=== PATIENT | female | born 1965 | race Caucasian/White ===

== ENCOUNTER 2017-04-01 08:48 | Emergency (ER) | payer BC ==
[~2017-04-01] VITALS: Ht 180.3 cm; Wt 93.3 kg
[~2017-04-01 08:48] MED LIST: BENTYL20 MG PO; FLEXERIL10 MG PO; PRILOSEC20 MG PO
[2017-04-01 09:59] LABS: HEMATOCRIT 42.3 % (36.0-46.0); HEMOGLOBIN 14.9 G/DL (11.9-15.5); MCHC 35.2 G/DL (30.0-36.0); MCV 88.1 FL (83-99); PLATELET COUNT 254 K/uL (156-360); RBC DIS.WIDTH-CV 11.9 % (11.8-14.6); RBC DIS.WIDTH-SD 38.3 % (39-53); WHITE BLOOD COUNT 6.5 K/uL (4.1-10.2)
[2017-04-01 10:17] LABS: CHLORIDE 107 mEq/L (99-109); POTASSIUM 3.8 mEq/L (3.7-5.4); SODIUM 141 mEq/L (136-147)
[2017-04-01 10:18] LABS: GLUCOSE 97 mg/dL (70-99)
[2017-04-01 10:20] LABS: TROP-I INTERPRETATION NEGATIVE; TROPONIN-I < 0.01 ng/mL (0.0-0.30)
[2017-04-01 10:22] LABS: CREATININE 0.8 mg/dL (0.6-1.3); GFR ESTIMATE (CALCULATED) > 59 mL/min/
[2017-04-01 10:23] LABS: UREA NITROGEN (BUN) 9 mg/dL (9-23)
[2017-04-01 13:00] LABS: TROP-I INTERPRETATION NEGATIVE; TROPONIN-I < 0.01 ng/mL (0.0-0.30)
[2017-04-01 13:34] VITALS: BP 122/82
== END 2017-04-01 13:35 | disposition home or self-care (01) ==
LOC: EME 08:48
PROVIDERS: Nurse Practitioner Family
DX: R07.9 Chest pain, unspecified (principal); I49.3 Ventricular premature depolarization; Z82.49 Family history of ischemic heart disease and other diseases of the circulatory system; Z87.11 Personal history of peptic ulcer disease; Z88.1 Allergy status to other antibiotic agents
CPT/HCPCS: 71046; 80048; 84484; 85027; 93005; 99281; 99284

== ENCOUNTER 2017-08-11 09:50 | Emergency (ER) | payer BC ==
[~2017-08-11] VITALS: Ht 180.3 cm; Wt 93.8 kg
[2017-08-11 10:37] LABS: HEMATOCRIT 38.8 % (36.0-46.0); HEMOGLOBIN 13.9 G/DL (11.9-15.5); MCH 32.2 PG (29.0-34.0); MCHC 35.8 G/DL (30.0-36.0); MCV 89.8 FL (83-99); PLATELET COUNT 201 K/uL (156-360); RBC DIS.WIDTH-CV 12.1 % (11.8-14.6); RBC DIS.WIDTH-SD 39.7 % (39-53); RED BLOOD COUNT 4.32 M/uL (3.80-5.20); WHITE BLOOD COUNT 5.7 K/uL (4.1-10.2)
[2017-08-11 10:46] LABS: CHLORIDE 107 mEq/L (99-109); POTASSIUM 4.2 mEq/L (3.7-5.4); SODIUM 137 mEq/L (136-147)
[2017-08-11 10:48] LABS: GLUCOSE 103 mg/dL (70-99); TOTAL PROTEIN 6.6 g/dL (6.4-8.3)
[2017-08-11 10:50] LABS: TOTAL BILIRUBIN 0.7 mg/dL (0.0-1.0)
[2017-08-11 10:51] LABS: ALKALINE PHOSPHATASE 53 IU/L (3-129)
[2017-08-11 10:52] LABS: CREATININE 0.8 mg/dL (0.6-1.3); GFR ESTIMATE (CALCULATED) > 59 mL/min/
[2017-08-11 10:52] LABS: APPEARANCE CLEAR ((CLEAR)); BILIRUBIN NEGATIVE; BLOOD NEGATIVE; COLOR STRAW ((YELLOW)); GLUCOSE (STRIP) NEGATIVE; KETONES NEGATIVE; LEUKOCYTES NEGATIVE; NITRITE NEGATIVE; PROTEIN (STRIP) NEGATIVE; SPECIFIC GRAVITY 1.004 (1.000-1.030); UCUL ADDED? NO; UROBILINOGEN 0.2 MG/DL (0.2-1.0)
[2017-08-11 10:53] LABS: AST (GOT) 11 IU/L (2-34); UREA NITROGEN (BUN) 9 mg/dL (9-23)
[2017-08-11 10:54] LABS: ALT (GPT) 11 IU/L (3-49)
[2017-08-11 11:04] LABS: QUANTITATIVE HCG < 4.0 MIU/ML
[2017-08-11] MEDS ORDERED: NORCO 5/3251 TABLET PO (14:07)
[2017-08-11 14:52] VITALS: BP 120/79
== END 2017-08-11 14:52 | disposition home or self-care (01) ==
LOC: EME 09:50
DX: M54.5 Low back pain (principal); M41.9 Scoliosis, unspecified; N83.202 Unspecified ovarian cyst, left side; Z87.11 Personal history of peptic ulcer disease; Z90.49 Acquired absence of other specified parts of digestive tract; Z88.0 Allergy status to penicillin
CPT/HCPCS: 74176; 80053; 81003; 84702; 85027; 99281; 99284